=== PATIENT | male | born 2000 | race Caucasian/White ===

== ENCOUNTER 2021-11-30 10:13 | Emergency (ER) | payer OTHER ==
[~2021-11-30] VITALS: Ht 177.8 cm; Wt 86.2 kg
[2021-11-30] MEDS ORDERED: IBUPROFEN 600 MG TABLET ONE (10:42)
[2021-11-30] MEDS ORDERED: ACETAMINOPHEN ES 500 MG TABLET ONE (10:43)
[2021-11-30] MEDS ORDERED: ONDANSETRON ODT 4 MG TAB.RAPDIS ONE (10:43)
[2021-11-30] MEDS ORDERED: IBUPROFEN 600 MG TABLET PO ONE (10:45)
[2021-11-30] MEDS ORDERED: ACETAMINOPHEN ES 500 MG TABLET PO ONE (10:45)
[2021-11-30] MEDS ORDERED: ONDANSETRON ODT 4 MG TAB.RAPDIS SL ONE (10:45)
--- NOTE | 2021-11-30 10:45 | NUR ---
PT IS IN ROOM #2B. DR THOMASON EVALUATED THE PT.
[2021-11-30 13:35] LABS: *BILIRUBIN,URIN NEGATIVE (NEGATIVE); *BLOOD, URINE 3+ (NEGATIVE); *CLARITY,URINE CLEAR (CLEAR); *COLOR,URINE YELLOW (YELLOW); *KETONES,URINE TRACE (NEGATIVE); *UROBILINOGEN,URINE 0.2 E.U./dl (NORMAL); LEUKOCYTE ESTERASE ,URINE NEGATIVE (NEGATIVE); NITRITE, URINE NEGATIVE (NEGATIVE); PH,URINE 6.5 (5.0-8.0); UGLUCOSE NEGATIVE (NEGATIVE)
[2021-11-30 13:51] LABS: BACTERIA,URINE FEW /HPF (NONE SEEN); WBC,URINE 0-3 /HPF (0-3)
[2021-11-30 13:52] LABS: SQUAMOUS EPITHELIAL CELL,UR NONE SEEN /HPF (NONE SEEN)
--- NOTE | 2021-11-30 14:50 | NUR ---
PT WAS D/C'd TO HOME. D/C INSTRUCTIONS GIVEN TO THE PT BY DR THOMASON.
[2021-11-30 14:51] VITALS: BP 129/81
== END 2021-11-30 14:52 | disposition home or self-care (01) ==
LOC: ER 10:13
DX: N50.812 Left testicular pain (principal); R31.9 Hematuria, unspecified
CPT/HCPCS: 76870; 87086; A4663; A9150; Q0162